=== PATIENT | female | born 1945 | race Caucasian/White ===

== ENCOUNTER 2016-08-07 07:18 | Inpatient (IN) | payer MEDICARE, BC ==
[2016-08-01 13:28] LABS: HEMOGLOBIN 13.7 g/dL (12.0-16.0)
[2016-08-01 13:42] LABS: BUN (BLOOD UREA NITROGEN) 10 MG/DL (6-23); CALCIUM, SERUM 9.6 MG/DL (8.5-10.4); CHLORIDE, SERUM 99 MMOL/L (96-112); CO2 (CARBON DIOXIDE) 33 MMOL/L (24-34); CREATININE 0.67 MG/DL (0.55-1.02); GFR AFRICAN AMERICAN 101 ML/MIN (>=60); GFR NON AFRICAN AMERICAN 87 ML/MIN (>=60); GLUCOSE, SERUM 127 MG/DL (60-99); POTASSIUM, SERUM 4.4 MMOL/L (3.5-5.3); SODIUM, SERUM 140 MMOL/L (135-148)
--- NOTE | ~2016-08-07 | DS ---
Discharge Summary [facility] [address] [place]. [address] NAME: NINI VALENTIN : 41 STATUS : DIS IN PAT#: [id number] AGE: 71 ADM/REG DATE : 08/07/16 MR#: [id number] REPORT SERV DATE: 08/21/16 DICTATED BY: ELEAZAR STEELE II DATE: 08/20/16 REPORT STATUS : Draft TRANSCRIBED BY: CRIS DATE: 08/20/16 Data Collection from hospitalization DISCHARGE DIAGNOSIS(ES): 1. Adjacent segment degeneration, L1-L2 with history of L2-S1 fusion. 2. 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 3. Type 2 diabetes mellitus. 4. Hypertension. 5. Anxiety and depression. 6. Dementia. 7. Gastroesophageal reflux disease. 8. Gout. CONSULTATIONS: None. PROCEDURES PERFORMED: Lumbar laminectomy and facetectomy for decompression of L1 and L2 nerve roots; interbody arthrodesis, L1-L2; application of prosthetic device, L1-L2; posterior nonsegmental instrumentation, L1-L2; use of local autograft, allograft substitute, and bone morphogenic protein; use of microscope and stereotactic spinal imaging, 08/07/2016. PATHOLOGY: Tissue from L1-2 - benign skeletal muscle, soft tissue, and bone and cartilage, benign medullary bone. MEDICATIONS: Lipitor 10 mg at bedtime, BuSpar 10 mg twice a day, Celexa 40 mg daily, Colace 100 mg twice a day, Neurontin 600 mg three times a day, hydrochlorothiazide 25 mg daily, levothyroxine 25 mcg daily, MS Contin 15 mg twice a day, [place] 10/325 one tablet every four hours as needed, multivitamins one tablet daily, fish oil 1000 mg daily, Prilosec 20 mg daily, Glucophage 850 mg twice a day, Atarax 25 mg at bedtime as needed, aspirin 325 mg daily, and Zanaflex 4 mg three times a day as needed. CONDITION AT DISCHARGE: Stable. DISPOSITION: The patient was discharged to [facility] on an 1800-calorie diabetic diet with activities as instructed. HOSPITAL COURSE: This is a 71-year-old female, who had complained of lumbar spine related symptoms. The symptoms are located in the lower back with radiation into the right lower extremity with associated tingling. The patient reported a pain level of 6 on a scale of 0- 10. Treatment options were discussed, and it was elected to proceed with surgical intervention. She was admitted to the hospital at this time for further evaluation and treatment. Upon admission, she was taken to the operating room where she underwent the above-mentioned procedure. She tolerated this well. There were no complications. On postop day #1, she complained of a lot of postop pain. She was unsure of the lower extremity radiculopathy improvement. She had not been out of bed yet. We encouraged her to mobilize. She was evaluated by Physical Therapy. On postop day 2, she preferred to keep the Downing catheter in place. She did have some abdominal discomfort. She had some mild abdominal distention. Discharge Summary [address] [place]. [address] NAME: NINI VALENTIN : 41 STATUS : DIS IN PAT#: [id number] AGE: 71 ADM/REG DATE : 08/07/16 MR#: [id number] REPORT SERV DATE: 08/21/16 DICTATED BY: ELEAZAR STEELE II DATE: 08/20/16 REPORT STATUS : Draft TRANSCRIBED BY: CRIS DATE: 08/20/16 FORKLIFT PICKER was discontinued. She was encouraged to mobilize. Over the next couple of days, discharge planning was performed. On 08/11/2016, she was alert and cooperative. Discharge instructions were given. Due to her improved and stable condition, she was discharged to [facility] with the above-stated instructions. Information collected by: Laura Bledsoe I submit the above information as my discharge summary. YAMILKA/CRIS Eleazar Steele II, M.D. / [id number] CC: Eleazar Steele II, M.D. [facility]
--- NOTE | ~2016-08-07 | OP ---
Record Of Operation [facility] [address] [place]. [address] NAME: NINI VALENTIN : 41 STATUS : ADM IN PAT#: [id number] AGE: 71 ADM/REG DATE : 08/07/16 MR#: [id number] REPORT SERV DATE: 08/10/16 DICTATED BY: ELEAZAR STEELE II DATE: 08/10/16 REPORT STATUS : Draft TRANSCRIBED BY: CRIS DATE: 08/10/16 DATE OF PROCEDURE: 08/07/2016 PREOPERATIVE DIAGNOSES: 1. Adjacent segment degeneration, L1-L2, with history of L2 to S1 fusion. 2. 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 POSTOPERATIVE DIAGNOSES: 1. Adjacent segment degeneration, L1-L2, with history of L2 to S1 fusion. 2. 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 PROCEDURE: 1. Lumbar laminectomy and facetectomy for decompression of the L1 and L2 nerve roots. 2. Interbody arthrodesis, L1-L2. 3. Application of prosthetic device L1-L2. 4. Posterolateral arthrodesis, L1-L2. 5. Posterior nonsegmental instrumentation, L1-L2. 6. Use of local autograft, allograft substitute, and bone morphogenic protein. 7. Use of the microscope and stereotactic spinal imaging. FLUIDS: 1200 mL LR. ESTIMATED BLOOD LOSS: 75 mL. DRAINS: One drain. COMPLICATIONS: None. ANTIBIOTIC: Preoperatively. PREOPERATIVE HISTORY: This is a very friendly 71-year-old female, who is very well known to me from the past. She has done exceptionally well following surgery. She has a very solid support structure including her daughter. Her who I remember quite well, who was heart appearing previously is now essentially unable to hear, but reads lips very well. They are a very wonderful family and overall she has been having increasing back and leg pain. We discussed the pros and cons of surgery and we discussed the rates of success versus failure. DESCRIPTION OF PROCEDURE: After informed consent was obtained, the patient was brought to the operating room at her request. She was placed in the prone position and the back was prepped and draped in a sterile fashion. The stereotactic spinal pin was placed into the left iliac crest and the intraoperative CT scan was completed. Stereotactic guidance was then used throughout the case. Next, the minimally invasive incision was performed on the right at L1-L2 and the quadrant retractor was placed. The microscope was brought into place, and under microscopic visualization, the facetectomy was performed at L1-L2. The hypertrophic facet was removed and the L1 and L2 nerve roots were well decompressed. The Record Of Operation [facility] [address] [place] [place] [address] NAME: NINI VALENTIN : 41 STATUS : ADM IN PAT#: [id number] AGE: 71 ADM/REG DATE : 08/07/16 MR#: [id number] REPORT SERV DATE: 08/10/16 DICTATED BY: ELEAZAR STEELE II DATE: 08/10/16 REPORT STATUS : Draft TRANSCRIBED BY: CRIS DATE: 08/10/16 central canal was also well decompressed including the left lateral recess. Following irrigation, the L2 nerve root was gently retracted, and the diskectomy was completed, and the endplates prepared with a high-speed bur, and the [place] rongeurs, and the curettes. The area was now irrigated. Next, the prosthetic device was trialed and chosen and placed at L1-L2. This was placed into the anterior disk space, along side local autograft and allograft substitute, and a small amount of bone morphogenic protein. Next, the pedicle screws were applied into L1 and L2. Screws were also placed percutaneously on the left. A repeat CT scan was then performed which confirmed acceptable placement of the implants. The rods were then final tightened followed by irrigation. On the right side, we then decorticated the transverse process of L1 and L2, and local autograft, allograft substitute, and bone morphogenic protein were placed along the decorticated surfaces. A deep drain was placed followed by standard closure. The patient tolerated the procedure well and was transferred to PACU in stable condition. YOCASTA/CRIS Eleazar Steele II, M.D. / [id number] CC: Eleazar Steele II, M.D.
[~2016-08-07 07:18] MED LIST: ASA5GR PO; AT10 PO; ATARAX PO; BUSPAR10 PO; CELEXA10 PO; CELEXA40 MG PO; CLARIT10 PO; DRAMAMINE25 MG PO; EXELON1.5 PO; FISH-EPA1000 MG PO; GLUCPH8 PO; HYDROCHLOROT25 MG PO; LEVOTHYROXIN25 MCG PO; LEVSINTAB PO; LIPITOR10 PO; LORTAB 5 PO; LYRICA100 MG PO; MSCONT100 PO; MULTIPLE VIT PO; NEUR600 PO; NORCO1 TAB PO; PREV15 PO; PRILO PO; ROXICODONE15 MG PO; ZANAFLEX 4 MG TA4 MG PO; [UNRECOGNIZED DRUG - OTHER] PO
== END 2016-08-11 14:07 | DRG 460 ==
LOC: SDC/OF 07:18 → 3SO 16:46
PROVIDERS: Orthopaedic Surgery
PROC: 0SG00AJ Fusion of Lumbar Vertebral Joint with Interbody Fusion Device, Posterior Approach, Anterior Column, Open Approach (ICD-10-PCS; principal; 2016-08-07 08:45)
PROC: 4A11X4G Monitoring of Peripheral Nervous Electrical Activity, Intraoperative, External Approach (ICD-10-PCS; 2016-08-07 08:45)
DX: M51.16 Intervertebral disc disorders with radiculopathy, lumbar region (principal)
CPT/HCPCS: 36415; 74000; 80048; 82962; 85014; 85018; 87641; 88304; 88311; 93005; 97116-GP; 97162-GP; 97530-GP; A9270-GY; C1713; C1768; J0690; J1030; J1644; J2250; J2270; J2405; J2710; J3010; P9045